=== PATIENT | male | born 1985 | race Caucasian/White ===

== ENCOUNTER 2024-09-01 21:17 | Emergency (ER) | payer SELFPAY ==
[~2024-09-01] VITALS: Ht 165.1 cm; Wt 74.8 kg
[2024-09-01 21:49] VITALS: O2SAT 99
[2024-09-01 21:55] VITALS: O2SAT 97
[2024-09-01 22:39] VITALS: BP 152/101; PULSE 119; RESP 16; TEMP 100.1
[2024-09-01] MEDS: ACETAMINOPHEN 325MG TABLET PO NR (22:39)
[2024-09-01] MEDS: IBUPROFEN 400MG TABLET PO NR (22:39)
[2024-09-01 23:03] LABS: HEMATOCRIT. 50.4 % (42.0-52.0); HEMOGLOBIN. 17.3 g/dL (14.0-18.0); MEAN CORPUSCULAR HEMOGLOBIN 30.2 pg (28.0-32.0); MEAN CORPUSCULAR HGB CONC 34.4 g/dL (31.0-37.0); MEAN CORPUSCULAR VOLUME 87.9 fL (80.0-94.0); MEAN PLATELET VOLUME 8.2 fl (7.4-10.4); PLATELET 326 x1000/uL (130-400); RED BLOOD CELL COUNT 5.73 mill/uL (4.7-6.1); RED CELL DISTRIBUTION WIDTH 13.7 % (11.6-14.6); WHITE BLOOD COUNT 8.2 x1000/uL (4.5-11.0)
[2024-09-01 23:08] LABS: DIFFERENTIAL COMMENT 1
[2024-09-01 23:15] LABS: CHLORIDE 102 mEq/L (98-107); POTASSIUM 3.9 mEq/L (3.5-5.1); SODIUM 137 mEq/L (136-145)
[2024-09-01 23:16] LABS: CALCIUM 9.6 mg/dL (8.7-10.4); CARBON DIOXIDE 28 mEq/L (21-32)
[2024-09-01 23:21] LABS: GLUCOSE 236 mg/dL (70-105); UREA NITROGEN BLOOD 11 mg/dL (9-23)
[2024-09-01 23:32] LABS: PLATELET ESTIMATE NORMAL
== END 2024-09-02 03:02 | disposition home or self-care (01) ==
LOC: ER 21:17
DX: J10.00 Influenza due to other identified influenza virus with unspecified type of pneumonia (principal); Z20.822 Contact with and (suspected) exposure to COVID-19
CPT/HCPCS: 36415; 71046; 80048; 85025; 87426; 87804; 99284